=== PATIENT | female | born 1955 | race American Indian/Alaskan Native ===

== ENCOUNTER 2018-07-23 13:02 | Emergency (ER) | payer OTHER ==
[2018-07-23 13:03] VITALS: BMI 36.9
--- NOTE | 2018-07-23 13:22 | ED PDOC ---
Arrival/HPI - General Chief Complaint: Lower Extremity Problem/Injury Time Seen by Provider: 07/23/18 13:06 Historian: Patient - History of Present Illness Narrative History of Present Illness (Text): 07/23/18 13:19 62 year old female, whose past medical history includes history of tear of meniscus, presents to the emergency department complaining of left knee pain s/p trip and fall landing on her knee approximately 2 weeks ago. Patient reports she has a history of torn meniscus in the past. She states she did follow up with her orthopedist who performed an x-ray that resulted in negative in fractures and has done an MRI at [facility] pending results. Patient has a follow up appointment with her orthopedist on 08/09/18. She reports she called out of work yesterday due to the pain and is requesting a work note. Patient denies any back pain, neck pain, weakness, numbness/tingling, gait change, or any other complaints. PMD: Dr. Jones Time/Duration: Other (2 weeks) Symptom Onset: Sudden Symptom Course: Unchanged Activities at Onset: Light Context: Tripped Past Medical History - Provider Review Nursing Documentation Reviewed: Yes - Cardiac Hx Cardiac Disorders: No Hx Hypertension: Yes - Pulmonary Hx Respiratory Disorders: No - Neurological Hx Neurological Disorder: No - HEENT Hx HEENT Disorder: No - Renal Hx Renal Disorder: No - Endocrine/Metabolic Hx Endocrine Disorders: No - Hematological/Oncological Hx Blood Disorders: No Hx Anemia: Yes Hx Blood Transfusions: No - Integumentary Hx Dermatological Disorder: No - Musculoskeletal/Rheumatological Hx Musculoskeletal Disorders: Yes (MEDIAL AND LATERAL MENISCUS TEAR RIGHT KNEE) Hx Arthritis: Yes Hx Falls: No Other/Comment: DISLOCATED LEFT KNEE -REPAIRED - Gastrointestinal Hx Gastrointestinal Disorders: Yes (LAP BAND DONE) - Genitourinary/Gynecological Hx Genitourinary Disorders: No - Psychiatric Hx Psychophysiologic Disorder: No Hx Substance Use: No - Surgical History Hx Arthroscopy: Yes (LEFT KNEE 2011 .RIGHT KNEE 2014) Hx Hysterectomy: Yes Hx Orthopedic Surgery: Yes (R knee) Hx Tubal Ligation: Yes Other/Comment: LAP BAND DONECYST REMOVED FROM SCALPCYST REMOVED LEFT FOOTBUNIONECTOMY BILATERAL FEET - Anesthesia Hx Anesthesia: Yes Hx Anesthesia Reactions: No Hx Malignant Hyperthermia: No - Suicidal Assessment Feels Threatened In Home Enviroment: No Family/Social History - Physician Review Nursing Documentation Reviewed: Yes Family/Social History: No Known Family HX Smoking Status: Never Smoked Hx Alcohol Use: No Hx Substance Use: No Allergies/Home Meds Allergies/Adverse Reactions: Allergies No Known Allergies Allergy (Verified 11/09/16 15:26) Home Medications: Home Meds Medication Instructions Recorded Confirmed Docusate Sodium [Dok] 100 mg PO DAILY PRN 12/21/16 12/21/16 RX: Ondansetron [Zofran Tab] 8 mg PO DAILY PRN 12/21/16 12/21/16 RX: amLODIPine [Norvasc] 2.5 mg PO DAILY 12/21/16 12/21/16 oxyCODONE/Acetaminophen [Percocet 5 - 325 mg PO Q6 PRN 12/21/16 12/21/16 5/325 mg Tab] Review of Systems - Physician Review All systems were reviewed & negative as marked: Yes - Review of Systems Musculoskeletal: Other (left knee pain). absent: Back Pain, Neck Pain Neurological: absent: Gait Changes, Other (weakness or numbness) Physical Exam - Physical Exam Narrative Physical Exam (Text): Gen: VS reviewed, alert, well developed, well nourished, nontoxic, mild distress. Ext: Mild tenderness to anterior patella. no edema. Skin: good color, no rash, no cyanosis. Psych: responds appropriately to questions, normal affect. Neuro: oriented x 3, CN2-12 intact grossly, motor intact, sensation intact. Vital Signs Reviewed: Yes Temperature: Afebrile Blood Pressure: Hypertensive Pulse: Regular Respiratory Rate: Normal Medical Decision Making ED Course and Treatment: 07/23/18 13:19 Impression: 62 year old female presents complaining of left knee pain s/p trip and fall landing on her knee approximately 2 weeks ago. Patient is requesting a work note. Plan: -- Prescription for Ibuprofen 600 mg -- disposition Progress Notes: 07/23/18 13:46 patient was seen for left knee pain, no recurrent injury since reported injury prior to xray and mri workup. there was no calf pain or tenderness to suggest DVT, pain localized to bony/tendon aspect of knee. refer back to ortho. patient did not accept offer for knee brace. ultimately, patient simply needed note for work. - Scribe Statement The provider has reviewed the documentation as recorded by the Lata Lawson Provider Bentleyibe Attestation: All medical record entries made by the Lata were at my direction and personally dictated by me. I have reviewed the chart and agree that the record accurately reflects my personal performance of the history, physical exam, medical decision making, and the department course for this patient. I have also personally directed, reviewed, and agree with the discharge instructions and disposition. Disposition/Present on Arrival - Present on Arrival Any Indicators Present on Arrival: No History of DVT/PE: No History of Uncontrolled Diabetes: No Urinary Catheter: No History of Decub. Ulcer: No History Surgical Site Infection Following: None - Disposition Have Diagnosis and Disposition been Completed?: No Diagnosis: Knee pain Disposition: HOME/ ROUTINE Disposition Time: 13:46 Patient Plan: Discharge Condition: STABLE Discharge Instructions (ExitCare): Knee Pain (DC) Additional Instructions: follow up with your orthopedic surgeon. Prescriptions: RX: Ibuprofen [Motrin Tab] 600 mg PO QID #42 tab Forms: [facility] (Icelandic), WORK NOTE
[2018-07-23 13:27] VITALS: BP 140/92; PULSE 85; RESP 19; TEMP 98; O2SAT 99
== END 2018-07-23 13:25 | disposition home or self-care (01) ==
LOC: ED 13:02
DX: M25.562 Pain in left knee (principal); I10 Essential (primary) hypertension